=== PATIENT | female | born 1990 | race Caucasian/White ===

== ENCOUNTER 2019-09-19 10:50 | Emergency (ER) | payer OTHER ==
[~2019-09-19] VITALS: Ht 162.6 cm; Wt 64.0 kg
[2019-09-19 10:56] VITALS: Ht 162.6 cm; Wt 64.0 kg
[2019-09-19 12:30] LABS: CALCIUM 9.5 mg/dL (8.5-10.1); CARBON DIOXIDE 23.2 mmol/L (21-32); CHLORIDE SERUM 100 mmol/L (98-107); CREATININE SERUM 0.9 mg/dL (0.6-1.0); GFR1 > 60 mL/min; GLUCOSE SERUM 160 mg/dL (74-106); POTASSIUM SERUM 3.4 mmol/L (3.5-5.1); SODIUM SERUM 137 mmol/L (136-145)
[2019-09-19 13:47] VITALS: BP 111/71
== END 2019-09-19 13:47 | disposition home or self-care (01) ==
LOC: ED 10:50
PROVIDERS: Emergency Medicine
DX: K52.9 Noninfective gastroenteritis and colitis, unspecified (principal); Z88.0 Allergy status to penicillin
CPT/HCPCS: J0780; J1885; J2405; Q0162